=== PATIENT | female | born 1945 | race Caucasian/White ===

== ENCOUNTER 2017-09-16 13:54 | Observation (INO) | payer MEDICARE ==
[2017-09-16 15:10] LABS: Troponin I 0.013 ng/mL (< 0.028)
[2017-09-16] MEDS ORDERED: Acetaminophen 325 MG TAB PO PRN (16:31)
[2017-09-16] MEDS ORDERED: Dextrose 5% in Water 1,000 ML IV PRN (16:31)
[2017-09-16] MEDS ORDERED: Dextrose 50% Abboject 50 ML SYRINGE SLOW IVP PRN (16:31)
[2017-09-16] MEDS ORDERED: Ondansetron ODT 4 MG TAB PO PRN (16:31)
[2017-09-16] MEDS ORDERED: hydrALAZINE 20 MG/ML VIAL SLOW IVP PRN (17:31)
[2017-09-16 17:57] LABS: Troponin I Less than 0.010 ng/mL (< 0.028)
[2017-09-16] MEDS ORDERED: FLU VACC TS2017-18 (>65YR) 0.5 ML SYRINGE IM ONE (18:00)
[2017-09-16] MEDS: Magnesium Oxide 250 MG TAB PO SCH (20:18)
[2017-09-16] MEDS ORDERED: Anastrozole 1 MG TAB PO SCH (21:00)
[2017-09-16] MEDS ORDERED: Amitriptyline HCl 10 MG TAB PO SCH (21:00)
--- NOTE | 2017-09-17 06:36 | PDOC.FM ---
- Subjective Subjective: Patient reports she feels as well as ever. No CP, no dizziness, and no pre- syncopal episodes. No acute events overnight. - Objective MAR Reviewed: Yes Vital Signs & Weight: Vital Signs (12 hours) Temp Pulse Resp BP Pulse Ox 09/17/17 03:50 76 18 108/56 L 97 09/16/17 20:00 98.2 F 82 16 09/16/17 19:14 98.2 F 82 16 135/62 95 Weight Weight 84.459 kg I&O: 09/15/17 09/16/17 09/17/17 06:59 06:59 06:59 Intake Total 430 Balance 430 Phys Exam - Physical Examination Constitutional: NAD HEENT: moist MMs Respiratory: no wheezing, no rales, clear to auscultation bilateral Cardiovascular: RRR, no significant murmur Gastrointestinal: soft, non-tender Musculoskeletal: no edema Neurological: moves all 4 limbs Psychiatric: normal affect, A&O x 3 Skin: cap refill <2 seconds Dx/Plan (1) Syncope Code(s): R55 - SYNCOPE AND COLLAPSE Status: Acute (2) History of paroxysmal supraventricular tachycardia Code(s): Z86.79 - PERSONAL HISTORY OF OTHER DISEASES OF THE CIRCULATORY SYSTEM Status: Acute (3) Hypothyroidism Code(s): E03.9 - HYPOTHYROIDISM, UNSPECIFIED Status: Acute (4) Diabetes mellitus Code(s): E11.9 - TYPE 2 DIABETES MELLITUS WITHOUT COMPLICATIONS Status: Acute (5) CAD (coronary artery disease) Code(s): I25.10 - ATHSCL HEART DISEASE OF [place] CORONARY ARTERY W/O ANG PCTRS Status: Acute (6) S/P bilateral mastectomy Code(s): Z90.13 - ACQUIRED ABSENCE OF BILATERAL BREASTS AND NIPPLES Status: Acute - Plan Plan: Syncope 2/2 Unkown Etiology - tele monitoring - r/o ischemic disease with hx although pt does not endorse CP - PO hydration - likely 2/2 arrhythmia with hx of SVT CAD - NPO for stress this am - HEART score: 6 - Will need outpatient follow up with Dr. Olson, wool carder, if stress is negative Hx of SVT - takes metoprolol at home, held for stress test - not seen on tele strip but could be cause of syncope - recommend outpatient loop recorder and f/u with Dr. Olson, wool carder Hypothyroidism - TSH wnl - patient no longer on medication - recommend rechecking TSH in 1 month DM - blood sugar borderline low this morning, will decrease nightime Metformin to 250mg - held Glipizide in the hospital due to potential for hypoglycemia Breast Cancer s/p b/l Mastectomy - continue Anastrazole Dispo: likely d/c today if stress wnl
--- NOTE | 2017-09-17 06:54 | HP-2 ---
CODE STATUS: FULL. PRIMARY CARE PHYSICIAN: Dr. Zabrina Dean. ATTENDING: Dr. Akbar Cabrera. RESIDENT: Dr. Kasey Lee. HISTORIAN: Patient. CHIEF COMPLAINT: Syncope. HISTORY OF PRESENT ILLNESS: Patient is a 72-year-old female with past medical history of breast canc er who presented to [facility] for syncopal episode witnessed by friends. Syncopal episode happ ened while at a quilting convention. Patient was standing when she started becoming dizzy, nauseous, and diaphoretic. She sat down and reported no relief in those symptoms. She then became unresponsi ve. Witnesses denied stroke-like symptoms and seizure-like activity. Patient was only out for a "mi nute" and only reported mild dizziness afterwards. Patient has a significant history for hypothyroid ism, but recently off medications x1 month, per PCP. Patient also has significant history of coronar y artery disease with a history of 40% occlusion of RCA and by heart catheterization 9 years ago. Darrius wright has lost to follow up with Dr. Olson. Patient also has significant history of SVT in which she takes metoprolol for daily. Patient reports this is her sixth episode this year of syncope and two o ther episodes where she had these symptoms, but they resolved and did not result in passing out episo de. PAST MEDICAL HISTORY: 1. Breast cancer. 2. Diabetes mellitus. 3. Hypothyroidism. 4. Coronary artery disease. 5. History of supraventricular tachycardia. 6. Depression. PAST SURGICAL HISTORY: 1. Bilateral mastectomy. 2. Right knee and right foot surgery. 3. L5-S1 laminectomy. 4. Gastric sleeve. 5. Right carpal tunnel. 6. Cataracts. 7. Cholecystectomy. MEDICATIONS: 1. Amitriptyline. 2. Anastrozole. 3. Aspirin 81 mg daily. 4. Glipizide/metformin. 5. Metoprolol succinate. 6. Wellbutrin. SOCIAL HISTORY: Denies tobacco, alcohol, and drug use. REVIEW OF SYSTEMS: General: Denies fever, chills, weight changes, appetite changes. Eyes: Denies eye pain. ENT: Denies nasal congestion, no rhinorrhea, recent ill contacts. Respiratory: Denies c ough, congestion, shortness of breath. Cardiovascular: Denies chest pain, palpitations. Gastrointe stinal: Denies nausea, vomiting. Does report recent constipation within the last 2 days. Genitouri nary: Denies incontinence and dysuria. Skin: Denies rashes, lesions, jaundice. Musculoskeletal: Denies pain and swelling. Neurologic: Denies weakness and numbness. Admits to syncope. There was no seizure history. Psychiatric: Negative for anxiety and depression. PHYSICAL EXAMINATION: VITAL SIGNS: Blood pressure 168/97, pulse 82, respiratory rate of 18, T-max 97.6, pulse ox 98% on ro om air, current weight 81.65 kilograms. GENERAL: Patient is alert and oriented x4, no acute distress, appropriately interactive. EYES: PERRLA, EOMI. ENT: Nasal mucosa and oropharynx within normal limits. NECK: Supple, without lymphadenopathy or thyromegaly. Negative for bruits. CARDIOVASCULAR: Regular rate and rhythm. No murmurs, gallops, or rubs. Radial pulses 2+. RESPIRATORY: Normal effort, no retractions, clear to auscultation bilaterally. SKIN: Warm and dry. ABDOMEN: Soft, nontender. Bowel sounds present. No mass or distention. EXTREMITIES: No clubbing, cyanosis, or edema. MUSCULOSKELETAL: Structure within normal limits. Tone within normal limits. Muscle strength 5/5 an d full range of motion. NEUROLOGIC: No focal deficits. Cranial nerves II-XII intact. GCS 15. PSYCHIATRIC: Appropriate. LABORATORY DATA: CBC reveals a white blood cell count 5.6, hemoglobin 12.0, hematocrit 35.0, platele ts 142, MCV 91. Chemistries: Sodium 137, potassium 4.5, chloride 102, bicarbonate 22. BUN 18, crea tinine 0.84. Mag 8.7. ASSESSMENT AND PLAN: A 72-year-old female with past medical history of breast cancer, CAD with cath 9 years ago, syncopal episode with indeterminate troponins likely secondary to arrhythmia or electrol yte disorder. 1. Syncope, etiology unknown. Differential diagnosis includes arrhythmia, carotid stenosis, infecti on, thyroid disturbances. Admit to telemetry observation, monitor and trend troponins, check TSH and phos, and repeat EKG in the morning. 2. Indeterminate troponins. No chest pain. We will trend x3. Tele monitoring. Stress and/or furt her outpatient cardiac workup including echo and Holter monitor and possible repeat catheterization. 3. Diabetes mellitus, a.c and at bedtime, Accu-Cheks and home medications. Lasix has been decreased to 20 mg b.i.d. and the patient thought this is why she was taking, but she has just been taking 5 m g. 4. Diabetes mellitus, a.c. and at bedtime, Accu-Cheks and home meds. 5. Hypothyroidism. We will check a TSH and give home meds. 6. History of breast cancer. Continue estradiol. DESCRIPTION AND LENGTH OF HOSPITAL STAY: 1 to 2 days. Symptomatic medication will be provided. History and physical exam as well as management was discussed with Dr. Akbar Cabrera.
[2017-09-17] MEDS ORDERED: metFORMIN 500 MG TAB PO SCH ×2 (08:00→17:00)
[2017-09-17] MEDS ORDERED: Bupropion 150 MG XL TAB PO SCH (09:00)
[2017-09-17] MEDS ORDERED: Multivitamin W/ Minerals 1 TAB PO SCH (09:00)
[2017-09-17] MEDS ORDERED: RED YEAST RICE PO SCH (09:00)
[2017-09-17] MEDS ORDERED: Ubidecarenone 50 MG CAP PO SCH (09:00)
[2017-09-17] MEDS ORDERED: Enoxaparin Sodium 40 MG/0.4 ML SYRINGE SC SCH (09:00)
[2017-09-17] MEDS ORDERED: Fish Oil 1,000 MG CAP PO SCH (09:00)
--- NOTE | 2017-09-17 12:28 | HP ---
I have reviewed the history and physical of Dr. Kasey Lee and agree with her assessment and plan. Briefly, Ms. Townsend is a very pleasant 72-year-old white female patient, who was admitted with an appro ximately 2-minute episode of syncope occurring while she was at a quilt guild. She denied at that ti me any chest pain or palpitations. She states that she has had approximately 6 similar events in the last year. As far as she knows, she has never had a Holter or event monitor, although she was lost to followup with her sheriff detective several years ago. On exam now, she is completely awake and alert. She is in no distress. Very pleasant, cooperative and gives a good history. PHYSICAL EXAMINATION: VITAL SIGNS: Her blood pressure is 160/85, her pulse rate is 82 and regular, her respiratory rate is 16, she is afebrile and has a pulse ox of 98% on room air. GENERAL: As stated, she is awake, alert, oriented, in no distress. EARS, NOSE, AND THROAT: Throat shows no erythema or exudate. NECK: Supple. CARDIAC: Heart rhythm is regular. S4 gallop. No murmur or rub noted. LUNGS: Clear, diminished, but no rales, rhonchi, wheezes, or distress. ABDOMEN: Flat and soft, without guarding, rebound, or rigidity. NEUROLOGICAL: No focal deficits. LABORATORY DATA: CBC: White count 5600, hemoglobin 12. Chemistries: Sodium 137, potassium 4.5, ch loride 102, bicarbonate 22, BUN 18, creatinine 0.84. ASSESSMENT: Syncope in a patient with known coronary artery disease. PLAN: We will re-stress her. She will likely be an excellent candidate for an event recorder and we will arrange this through her sheriff detective.
[2017-09-17 12:36] VITALS: BP 140/65; TEMP 98.3
[2017-09-17] MEDS: Magnesium Oxide 250 MG TAB PO SCH (13:00)
--- NOTE | 2017-09-17 14:44 | NM ---
MYOCARDIAL PERFUSION SCAN WITH SPECT IMAGING: History: Chest pain. Examination was performed using 29.4 mCi Technetium 99M Sestamibi on stress and 9.6 mCi Technetium 99 M Sestamibi on the resting images. FINDINGS: There is a fairly normal distribution of radiopharmaceutical without signs of ischemia or scar. Wall motion: There is symmetric contractility to the ventricle. Left Ventricular Ejection Fraction: Calculated left ventricular ejection fraction is 75%. IMPRESSION: Unremarkable myocardial perfusion scan. POS: DANICA
[2017-09-17] MEDS ORDERED: ADENOSINE 60 MG/20 ML VIAL ONE (15:27)
[2017-09-18] MEDS ORDERED: metFORMIN 500 MG TAB PO SCH (08:00)
--- NOTE | 2017-09-23 13:36 | EKG ---
Test Reason : ABNORMAL EKG TXFER Blood Pressure : / mmHG Vent. Rate : 078 BPM Atrial Rate : 078 BPM P-R Int : 180 ms QRS Dur : 092 ms QT Int : 412 ms P-R-T Axes : 046 -01 -14 degrees QTc Int : 469 ms Normal sinus rhythm Septal infarct , age undetermined Abnormal ECG Confirmed by LYNNE SAENZ, ENIO Shook ([id number]), index editor KRISS HARRISON ([id number]) on 09/23/2017 1:35:55 PM Referred By: LYNNE Confirmed By:ENIO BATISTA MD
== END 2017-09-17 15:32 | disposition home or self-care (01) ==
LOC: ERS 13:54 → 2SW 16:03
PROVIDERS: ADMIT Family Medicine; ATTEND Family Medicine
DX: R55 Syncope and collapse (principal); I25.10 Atherosclerotic heart disease of native coronary artery without angina pectoris; E11.9 Type 2 diabetes mellitus without complications; E03.9 Hypothyroidism, unspecified; I47.1 Supraventricular tachycardia; F32.9 Major depressive disorder, single episode, unspecified; Z88.5 Allergy status to narcotic agent; Z88.8 Allergy status to other drugs, medicaments and biological substances; Z79.84 Long term (current) use of oral hypoglycemic drugs; Z79.82 Long term (current) use of aspirin; Z79.899 Other long term (current) drug therapy; Z98.84 Bariatric surgery status; Z90.13 Acquired absence of bilateral breasts and nipples; Z90.49 Acquired absence of other specified parts of digestive tract; Z98.890 Other specified postprocedural states
CPT/HCPCS: 78452; 80061; 82553; 82962 ×2; 84100; 84443; 84484; 90732; 93005 ×2; 93017; 99285; A9500; G0008; G0009; G0378; Q2036; 36415; 36416; 90471; 90682; 93010; J0153; J1650

== ENCOUNTER 2020-10-27 15:25 | Outpatient (CLI) | payer MEDICARE ==
--- NOTE | 2020-10-27 16:10 | BD ---
EXAM: DEXA bone density examination HISTORY: 75-year-old postmenopausal female for screening COMPARISON: 10/20/2005 FINDINGS: L1--bone mineral density 1.073 g/sq cm; T score 0.8 L2--bone mineral density 1.200 g/sq cm; T score 1.6 L3--bone mineral density 1.281 g/sq cm; T score 1.8 L4--bone mineral density 1.016 g/sq cm; T score -0.4 Total L1-L4--bone mineral density 1.137 g/sq cm; T score 0.8 Left femoral neck--bone mineral density0.623; T score -2.0 Total proximal left femur--bone mineral density 0.934; T score -0.1 IMPRESSION: Osteopenia. This patient has a 10 year WHO fracture risk of a major osteoporotic fracture of 22% and of a hip fracture of 12%.
== END 2020-10-27 15:26 | disposition home or self-care (01) ==
LOC: BICMAMMO 15:25
PROVIDERS: ATTEND Internal Medicine Hematology & Oncology
DX: Z13.820 Encounter for screening for osteoporosis (principal); M85.852 Other specified disorders of bone density and structure, left thigh; Z85.3 Personal history of malignant neoplasm of breast
CPT/HCPCS: 77080

== ENCOUNTER 2021-10-29 10:50 | Outpatient (CLI) | payer MEDICARE | END 2021-10-29 10:51 | disposition home or self-care (01) | LOC: BICMAMMO 10:50 | PROVIDERS: ATTEND Internal Medicine Hematology & Oncology | DX: M85.852 Other specified disorders of bone density and structure, left thigh (principal); M81.0 Age-related osteoporosis without current pathological fracture | CPT/HCPCS: 77080 ==